=== PATIENT | female | born 1955 | race Two or more races ===

== ENCOUNTER → 2024-08-09 | Outpatient (CLI) | payer MEDICAID ==
[2024-08-09 07:37] LABS: Triglycerides 182 mg/dL (< 150)
[2024-08-09 07:38] LABS: Cholesterol 201 mg/dL (< 200); LDL Cholesterol 132 mg/dL (< 100)
[2024-08-09 07:39] LABS: HDL Cholesterol 44 mg/dL (40-59)
== END | disposition home or self-care (01) ==
LOC: LAB 06:13
PROVIDERS: ATTEND Internal Medicine
DX: E78.5 Hyperlipidemia, unspecified (principal)
CPT/HCPCS: 36415; 80061

== ENCOUNTER → 2024-12-29 | Outpatient (CLI) | payer MEDICAID ==
[2024-12-29 12:19] LABS: Cholesterol 191 mg/dL (< 200)
[2024-12-29 12:25] LABS: HDL Cholesterol 35 mg/dL (40-59); LDL Cholesterol 111 mg/dL (< 100); Triglycerides 270 mg/dL (< 150)
== END | disposition home or self-care (01) ==
LOC: LAB 11:21
PROVIDERS: ATTEND Internal Medicine
DX: I10 Essential (primary) hypertension (principal); I67.1 Cerebral aneurysm, nonruptured; F48.9 Nonpsychotic mental disorder, unspecified
CPT/HCPCS: 36415; 80061; 83036; 84443

== ENCOUNTER → 2025-02-10 | Outpatient (CLI) | payer MEDICAID ==
[2025-02-10 16:23] LABS: Albumin 4.6 g/dL (3.2-4.8); Bilirubin, Direct 0.1 mg/dL (<0.3); Bilirubin, Total 0.5 mg/dL (0.2-1.0); Total Protein 7.2 g/dL (5.7-8.2)
== END | disposition home or self-care (01) ==
LOC: LAB 15:18
PROVIDERS: ATTEND Internal Medicine
DX: Z12.11 Encounter for screening for malignant neoplasm of colon (principal); E78.5 Hyperlipidemia, unspecified
CPT/HCPCS: 36415; 80061; 80076